=== PATIENT | female | born 1990 | race Caucasian/White ===

== ENCOUNTER 2021-10-11 12:03 | Emergency (ER) | payer MEDICAID ==
[~2021-10-11] VITALS: Ht 157.5 cm; Wt 46.8 kg
[2021-10-11 13:43] LABS: COLLECTION METHOD CLEAN CATCH
[2021-10-11 13:58] LABS: URINE APPEARANCE Clear (CLEAR/HAZY); URINE BLOOD Negative (NEGATIVE); URINE COLOR Straw (YELLOW); URINE GLUCOSE Negative (NEGATIVE); URINE KETONE Negative (NEGATIVE); URINE NITRATE Negative (NEGATIVE); URINE PROTEIN(semi-quant) Negative (NEGATIVE); URINE UROBILINOGEN 0.2 E.U/dL (0.2-1.0)
[2021-10-11 14:07] LABS: SQUAMOUS EPITHELIAL 0-2 /hpf (0-10); URINE BACTERIA None Seen /hpf (NONE SEEN); URINE RBC None Seen /hpf (0-2)
[2021-10-11 14:32] LABS: BASO % 0.3 % (0.0-2.0); EOS # 0.1 K/mm3 (0.0-0.7); GRAN # 4.1 K/mm3 (1.4-6.5); GRAN % 67.6 % (42.2-75.2); HEMATOCRIT 32.7 % (37.0-47.0); HEMOGLOBIN 10.4 g/dl (12.5-16.0); LYMPH # 1.5 K/mm3 (1.2-3.4); LYMPH % 24.1 % (20.0-51.0); MEAN CELL VOLUME 83 fl (80.0-100.0); MEAN CORPUSCULAR HEMOGLOBIN 27 pg (27-31); MEAN CORPUSCULAR HGB CONC 32 g/dl (33.0-37.0); MEAN PLATELET VOLUME 9.5 fl (7.4-10.4); MONO # 0.4 K/mm3 (0.1-0.6); MONO % 6.8 % (1.7-9.3); PLATELET COUNT 334 K/mm3 (130-400); RED BLOOD COUNT 3.93 M/mm3 (4.10-5.30); REDCELL DISTRIBUTION WIDTH-CV 13.7 % (11.5-14.5)
[2021-10-11 14:55] LABS: BILIRUBIN,TOTAL 0.5 mg/dL (0.2-1.2); C-REACTIVE PROTEIN 0.03 mg/dL (0.00-0.50); CALCIUM 9.1 mg/dL (8.4-10.2); CREATININE, serum 0.78 mg/dL (0.57-1.11); POTASSIUM 3.8 mmol/L (3.5-4.5); TOTAL PROTEIN 7.6 gm/dL (6.2-8.1)
[2021-10-11 17:12] VITALS: TEMP 97.9
[2021-10-11 18:14] VITALS: BP 134/81; PULSE 68
== END 2021-10-11 18:14 | disposition home or self-care (01) ==
LOC: COL.ER 12:03
PROVIDERS: Nurse Practitioner
DX: K59.00 Constipation, unspecified (principal); Z32.02 Encounter for pregnancy test, result negative; Z90.49 Acquired absence of other specified parts of digestive tract
CPT/HCPCS: J1170; J1885; J7030; Q9967

== ENCOUNTER 2023-12-19 09:37 | Emergency (ER) | payer OTHER ==
[~2023-12-19] VITALS: Ht 154.9 cm; Wt 48.2 kg
[~2023-12-19 09:37] MED LIST: ADDERALL XR 10M10 MG PO; ATIVAN 0.50.5 MG/TAB PO; EFFEXOR-XR150 MG PO; NATURAL IRON65 MG
[2023-12-19 09:41] VITALS: BP 131/87; TEMP 97.5
[2023-12-19 10:48] VITALS: PULSE 74
== END 2023-12-19 10:49 | disposition home or self-care (01) ==
LOC: COL.ER 09:37
DX: R25.1 Tremor, unspecified (principal); E16.2 Hypoglycemia, unspecified; E16.A1 Hypoglycemia level 1; F32.A Depression, unspecified; F17.210 Nicotine dependence, cigarettes, uncomplicated